=== PATIENT | male | born 1965 | race Caucasian/White ===

== ENCOUNTER 2018-08-11 22:02 | Inpatient (IN) | payer OTHER ==
[2018-08-11 22:53] LABS: PTT 72.1 SEC (22.9-36.1)
[2018-08-11 22:55] LABS: Hemoglobin 12.7 g/dL (14.0-18.0); Mean Corpuscular HGB CONC 30.3 g/dL (32.0-36.0); Mean Corpuscular Hemoglobin 32.6 pg (27.0-31.0); Mean Platelet Volume 7.8 fL (7.4-10.4); Platelet Count 150 thou/uL (130-400); RBC Distribution Width 13.5 % (11.5-14.5); White Blood Cell (WBC) Count 5.4 thou/uL (4.8-10.8)
[2018-08-11 23:00] LABS: ALT (SGPT) 18 U/L (8-55); AST (SGOT) 31 U/L (5-34); Albumin 3.2 g/dL (3.5-5.0); Alkaline Phosphatase 95 U/L (40-150); Anion Gap 11 mmol/L (10-20); BUN (Urea Nitrogen) 12 mg/dL (8.4-25.7); Bilirubin, Total 0.6 mg/dL (0.2-1.2); Calc. Creatinine Clearance 0 mL/min (70-130); Carbon Dioxide 29 mmol/L (22-29); Chloride 104 mmol/L (98-107); Estimated GFR-MDRD 61; Globulin 3.9 g/dL (2.4-3.5); Glucose 73 mg/dL (70-105); Potassium 4.4 mmol/L (3.5-5.1); Protein, Total 7.1 g/dL (6.0-8.3); Sodium 140 mmol/L (136-145)
[2018-08-11 23:03] LABS: Prothrombin Time 96.3 SEC (12.0-14.7)
[2018-08-11 23:05] LABS: #Eosinphils 0.3 thou/uL (0.0-0.7); #Lymphocytes 2.1 thou/uL (1.20-3.40); #Monocytes 0.8 thou/uL (0.11-0.59); #Neutrophils 2.1 thou/uL (1.40-6.50); %Basophils 0.4 % (0.0-1.0); %Eosinophils 6.2 % (0.0-10.0); %Monocytes 14.8 % (0.0-10.0); %Neutrophils 39.6 % (42.0-75.0); MDiff Complete? YES; Macrocytosis SLIGHT = 6-15 cells (100X) (0-5/hpf); PLT Morphology Comment Appears Adequate
[2018-08-11 23:07] LABS: INR-International Normal Ratio 12.9
[2018-08-12] MEDS ORDERED: Phytonadione 10 MG in Sodium Chloride 0.9% 50 ML IVPB SCH (00:30)
--- NOTE | 2018-08-12 01:05 | PDOC.FPRHP ---
- History of Present Illness Chief Complaint: abdominal pain/rectal bleeding History of Present Illness: 53yo M with hx of HIV, HepC and DVT (on coumadin) presents to ED for evaluation of abdominal pain and rectal bleeding. Pt reports epigastric pain started 2 days ago and that he did not have a BM for 2 days. On 08/11 when he did have a BM he noticed blood in the toilet and black tarry stool on wiping. pt was sent to ED and found to have unconcerning Hbg but an INR of 13. Related symptoms of dizyness and nausea, no vomiting. no transforming factors Pt reports that 1 month ago he was discovered to have a DVT after "passing out" he does not recal if he had been diagnosed with PE but that he was started on warfarin after episode. ED Course: vitamin K and 1u FFP given - Allergies/Adverse Reactions Allergies Allergy/AdvReac Type Severity Reaction Status Date / Time Penicillins Allergy Unverified 08/12/18 00:24 - Home Medications Medication Instructions Recorded Confirmed Type Abacavir Sulfate [Abacavir] 600 mg PO DAILY 08/12/18 08/12/18 History Acetaminophen [Non-Aspirin] 650 mg PO BID 08/12/18 08/12/18 History DULoxetine [Cymbalta] 30 mg PO DAILY 08/12/18 08/12/18 History Fosamprenavir Calcium 1,400 mg PO DAILY 08/12/18 08/12/18 History Furosemide 20 mg PO DAILY 08/12/18 08/12/18 History Lactulose 10 GM/15ML Oral Riay 20 gm PO QID 08/12/18 08/12/18 History [Lactulose] Omeprazole 20 mg PO DAILY 08/12/18 08/12/18 History PHENYLeph/Pramoxin/Glycr/W.Pet 51 gm RC QPM 08/12/18 08/12/18 History [Hemorrhoidal Cream] Propranolol [Inderal] 10 mg PO BID 08/12/18 08/12/18 History Ranitidine HCl 150 mg PO DAILY 08/12/18 08/12/18 History Rifaximin [Xifaxan] 600 mg PO BID 08/12/18 08/12/18 History Ritonavir [Norvir] 100 mg PO QPM 08/12/18 08/12/18 History Selenium Sulfide [Selenium Sulfide 1 applic TP ASDIR 08/12/18 08/12/18 History 2.25% Shampoo] lamiVUDine 300 mg PO DAILY 08/12/18 08/12/18 History - History PMHx: DVT, HepC, HIV, encephalopathy, cirrhosis PSHx: R knee FHx: unknown Social: denies tobacco, former drinker and drug user (quit 30 years): heavy EtOH use, "all the drugs" many IV, specifically endorsed meth, cocaine, heroine - Review of Systems General: denies: fever/chills, fatigue Eyes: denies: vision changes ENT: denies: nasal congestion Respiratory: denies: cough, congestion, shortness of breath Cardiovascular: denies: chest pain, palpitation Gastrointestinal: reports: nausea, GI bleeding. denies: vomiting, diarrhea Skin: denies: rashes Neurological: denies: syncope, seizure - Vital signs BP: [128/76] HR: [68] RR: [18] Tmax: [98.3] Pox: [98]% on [ra] Wt: [76] - Physical Exam Constitutional: NAD, awake, alert and oriented HEENT: normocephalic and atraumatic, EOMI, grossly normal vision, normal nasal mucosa, MMM Neck: trachea midline Chest: no-tender to palpation Heart: RRR, normal S1/S2 Lungs: CTAB, no respiratory distress Abdomen: soft, bowel sounds present -Abdomen: moderate tenderness to palpation of epigastric and bilateral upper quadrants, guarding, no rebound tenderness, liver edge not palpated Skin: no rash/lesions, good turgor Heme/Lymphatic: no unusual bruising or bleeding, no purpura Psychiatric: normal mood and affect FMR H&P: Results - Labs Result Diagrams: 08/11/18 22:29 08/11/18 22:29 Lab results: WBC 5.4 thou/uL (4.8-10.8) 08/11/18 22:29 Hgb 12.7 g/dL (14.0-18.0) L 08/11/18 22:29 Hct 42.0 % (42.0-52.0) 08/11/18 22:29 MCV 108.0 fL (78.0-98.0) H 08/11/18 22:29 Plt Count 150 thou/uL (130-400) 08/11/18 22:29 Neutrophils % 39.6 % (42.0-75.0) L 08/11/18 22:29 Sodium 140 mmol/L (136-145) 08/11/18 22:29 Potassium 4.4 mmol/L (3.5-5.1) 08/11/18 22:29 Chloride 104 mmol/L (98-107) 08/11/18 22:29 Carbon Dioxide 29 mmol/L (22-29) 08/11/18 22:29 BUN 12 mg/dL (8.4-25.7) 08/11/18 22:29 Creatinine 1.23 mg/dL (0.6-1.3) 08/11/18 22: Glucose 73 mg/dL (70-105) 08/11/18: Calcium 10.0 mg/dL (7.8-10.44) 08/11/18 22:29 Total Bilirubin 0.6 mg/dL (0.2-1.2) 08/11/18 22:29 AST 31 U/L (5-34) 08/11/18 22:29 ALT 18 U/L (8-55) 08/11/18 22:29 Alkaline Phosphatase 95 U/L (40-150) 08/11/18 22:29 Serum Total Protein 7.1 g/dL (6.0-8.3) 08/11/18 22:29 Albumin 3.2 g/dL (3.5-5.0) L 08/11/18 22:29 FMR H&P: A/P - Problem List (1) Elevated INR Current Visit: Yes Status: Acute Code(s): R79.1 - ABNORMAL COAGULATION PROFILE (2) GIB (gastrointestinal bleeding) Current Visit: Yes Status: Acute Code(s): K92.2 - GASTROINTESTINAL HEMORRHAGE, UNSPECIFIED (3) HIV disease Current Visit: Yes Status: Acute Code(s): B20 - HUMAN IMMUNODEFICIENCY VIRUS [HIV] DISEASE (4) Hepatitis C Current Visit: Yes Status: Acute Code(s): B19.20 - UNSPECIFIED VIRAL HEPATITIS C WITHOUT HEPATIC COMA (5) Cirrhosis Current Visit: Yes Status: Acute Code(s): K74.60 - UNSPECIFIED CIRRHOSIS OF LIVER (6) SBP (spontaneous bacterial peritonitis) Current Visit: Yes Status: Acute Code(s): K65.2 - SPONTANEOUS BACTERIAL PERITONITIS - Plan Supratherapeutic INR A- INR 13, s/p Vitamin K and FFP. Other than HPI showing no signs/symptoms of bleeding P- hold Warfarin - will repeat INR in AM - CBC in AM Acute upper GI bleed A- reporting melena and red blood in toilet. likely secondary to supratherapeutic INR P- Warfarin held. - on home protonix - consider GI consult when INR is therapeutic for possble endoscopy. - daily CBC Abdominal Pain A- Pt quite tender to palpation on exam, new onset abd pain, concern for SBP but paracentesis contraindicated due to high INR P- tx preemptively for SBP with Rocephin, and will hold propranolol. Cirrhosis - resume home medications. - avoid hepatotoxic medications. - will get ammonia level HIV - home meds FMR H&P: Upper Level - Pertinent history Herbert Mensah is a 53 year old male with a history of HIV, ESLD secondary to alcohol abuse and hepatitis C who presents to the ED with one day history of abdominal pain and one episode of melena and bright red blood per rectum. Pt was started on Warfarin one month ago for treatment of DVT. In the ER he was found to have an INR of 12.9. He was given one unit of FFP and IV Vitamin K. Pt reportedly had a negative EGD last year. - Pertinent findings Vitals: Tmax: 97.8 RR: 20 P: 65 BP: 159/99 O2: 100% on RA weight: 76 kg. Physical Exam: General: alert and oriented x 3 in no apparent distress Heart: Regular rate and rhythm, no murmurs, rubs, or gallops. Lungs: Clear to auscultation bilaterally. Abdomen: no significant distention. moderate tenderness to palpation diffusely. Guarding present; no rebound tenderness. INR: 12.9 PT: 96.3 PTT: 72.1 - Plan Date/Time: 08/12/18 0104 Jory Tanner, have evaluated this patient and agree with findings/plan as outlined by auditor internal resident. Pertinent changes/additions are listed here. Supratherapeutic INR -s/p Vitamin K and FFP. - will hold Warfarin - No indication for Kcentra at this time due to absence of life-threatening bleeding. - will repeat INR in AM to determine if repeat administrations of Vitamin K are needed. - will monitor CBC. Acute upper GI bleed - likely secondary to supratherapeutic INR, however variceal bleeding cannot be excluded. - Warfarin held. - consider GI consult when INR is therapeutic for possble endoscopy. - will monitor CBCs, - GI prophylaxis with PPI Abdominal Pain - concern for SBP due to new-onset, diffuse abdominal tenderness. - will treat preemptively for SBP with Rocephin, and will hold propranolol. Cirrhosis - resume home medications. - avoid hepatotoxic medications. - will get ammonia level HIV - resume home medications.
[2018-08-12] MEDS ORDERED: Pantoprazole 40 MG VIAL ONE (01:06)
[2018-08-12] MEDS ORDERED: Mag-Al 1200 mg/1200 mg/30 ML UDCUP ONE (01:06)
[2018-08-12] MEDS ORDERED: Lidocaine Viscous Sol 2% 15 ml UD Cup ONE (01:06)
[2018-08-12] MEDS ORDERED: SELENIUM SULFIDE TOP SCH (03:00)
[2018-08-12] MEDS ORDERED: Ondansetron ODT 4 MG TAB PO PRN (03:21)
[2018-08-12 03:46] VITALS: BMI 25.8
[2018-08-12 05:22] LABS: INR-International Normal Ratio 2.8; PTT 44.3 SEC (22.9-36.1); Prothrombin Time 29.3 SEC (12.0-14.7)
[2018-08-12 05:45] LABS: Anion Gap 11 mmol/L (10-20); BUN (Urea Nitrogen) 12 mg/dL (8.4-25.7); Calc. Creatinine Clearance 94 mL/min (70-130); Calcium 9.4 mg/dL (7.8-10.44); Carbon Dioxide 27 mmol/L (22-29); Chloride 106 mmol/L (98-107); Estimated GFR-MDRD 78; Glucose 88 mg/dL (70-105); Potassium 3.8 mmol/L (3.5-5.1); Sodium 140 mmol/L (136-145)
[2018-08-12 05:53] LABS: Band 2 % (5-11); Eosinophils 5 % (0-10); Hemoglobin 11.6 g/dL (14.0-18.0); Lymphocytes 39 % (21-51); MDiff Complete? YES; Macrocytosis SLIGHT = 6-15 cells (100X) (0-5/hpf); Mean Corpuscular HGB CONC 31.7 g/dL (32.0-36.0); Mean Corpuscular Hemoglobin 33.8 pg (27.0-31.0); Mean Platelet Volume 7.7 fL (7.4-10.4); Monocytes 18 % (0-10); Neutrophil 35 % (42-75); PLT Morphology Comment Appears Decreased; Platelet Count 119 thou/uL (130-400); RBC Distribution Width 13.5 % (11.5-14.5); Reactive Lymphocytes 1 % (0-10); Red Blood Cell (RBC) Count 3.44 mill/uL (4.70-6.10); White Blood Cell (WBC) Count 4.6 thou/uL (4.8-10.8)
--- NOTE | 2018-08-12 06:03 | PDOC.FM ---
- Subjective Subjective: NAEO. Patient denies any fever, chest pain, or SOB, N/V/D. Endorses some chills & LLE edema as well as marked improvement in abdominal pain. Rates is a 2/10 in severity. Also reported a tarry BM since getting to the floor. Had some blood on the tissue as well but states bleeding was much better than what he saw before coming to the hospital. - Objective MAR Reviewed: Yes Vital Signs & Weight: Weight Weight 79.379 kg Result Diagrams: 08/12/18 05:01 08/12/18 05:01 Phys Exam - Physical Examination Constitutional: NAD HEENT: moist MMs, sclera anicteric, oral pharynx no lesions Neck: supple, full ROM Respiratory: no wheezing, no rales, no rhonchi, clear to auscultation bilateral Cardiovascular: RRR, no significant murmur, no rub Gastrointestinal: soft, positive bowel sounds mild abdominal distention w/ severe TTP on epigastrium Musculoskeletal: edema present LLE edematous compared to the RLE. No pitting present. Neurological: non-focal, moves all 4 limbs dulled sensation to touch in B/L feet Psychiatric: normal affect, A&O x 3 Skin: no rash, normal turgor Dx/Plan (1) Elevated INR Code(s): R79.1 - ABNORMAL COAGULATION PROFILE Status: Acute (2) GIB (gastrointestinal bleeding) Code(s): K92.2 - GASTROINTESTINAL HEMORRHAGE, UNSPECIFIED Status: Acute (3) HIV disease Code(s): B20 - HUMAN IMMUNODEFICIENCY VIRUS [HIV] DISEASE Status: Acute (4) Hepatitis C Code(s): B19.20 - UNSPECIFIED VIRAL HEPATITIS C WITHOUT HEPATIC COMA Status: Acute (5) Cirrhosis Code(s): K74.60 - UNSPECIFIED CIRRHOSIS OF LIVER Status: Acute (6) SBP (spontaneous bacterial peritonitis) Code(s): K65.2 - SPONTANEOUS BACTERIAL PERITONITIS Status: Acute - Plan Plan: 53YOM with a PMG significant for HIV, HepC, and a h/o DVT chronic anticoagulation with coumadin who presented to ED for evaluation of abdominal pain and rectal bleeding & was found to have a supratherapeutic INR of 12.9. Supratherapeutic INR - INR of 12.9 on presentation. Down to 2.8 this AM s/p Vitamin K and 1 unit of FFP. - Will continue to hold Warfarin in anticipation of possible EGD w/ biopsy today. - Hgb down only slightly to 11.6 from 12.7 on presentation. - Will continue to monitor. Acute upper GI bleed - FOBT was + on admission. Most likely secondary to supratherapeutic INR. Patient endorses another tarry stool since arriving to the floor. - Will continue to hold Warfarin. - Will continue on home protonix for GI PPx. - GI to see this AM after being consulted in the ED yesterday. INR is measuring therapeutic this AM. Patient will likely need to undergo endoscopy. - Will continue to monitor Hgb w/ QD CBCs. Abdominal Pain - GI consulted in the ED. - Will make NPO until GI can evaluate as they may be able to scope today. - Will order a RUQ U/S & lipase. - Will consider paracentesis now that INR is therapeutic and patient is still TTP on exam. Will continue with IV Rocephin & continue to hold propanolo as BPs have been well-controlled for suspected SBP. Cirrhosis 2/2 hepC - Will resume home medications. - Will continue to avoid hepatotoxic medications. - Ammonia level WNLs at 64 this AM but patient is A&O. HIV - Aware. - Will resume home meds.
[2018-08-12] MEDS: cefTRIAXone\\ROCEPHIN 2 GM in Sodium Chloride 0.9% 100 ML IVPB SCH (06:10)
[2018-08-12] MEDS ORDERED: FOSAMPRENAVIR CALCIUM PO SCH (09:00)
[2018-08-12] MEDS ORDERED: Prevnar 13-Val Conj/PF 0.5 ML SYRINGE IM ONE (09:00)
[2018-08-12] MEDS: DULoxetine 30 MG CAP PO SCH (09:14)
[2018-08-12] MEDS: Rifaximin 550 MG TAB PO SCH ×2 (09:15→21:32)
[2018-08-12] MEDS: Furosemide 20 MG TAB PO SCH (09:15)
[2018-08-12] MEDS ORDERED: PROPOFOL 200 MG/20 ML VIAL ONE (09:47)
[2018-08-12] MEDS ORDERED: Lidocaine 1% PF 5 ML VIAL ONE (09:47)
--- NOTE | 2018-08-12 10:01 | HP ---
I have read the history and physical of Dr. Reggie Sanabria and have discussed the case with him. I a gree with his assessment and plan. Briefly, Mr. Mensah is a 53-year-old incarcerated white male patient with a history of HIV and hepatiti s C as well as cirrhosis. He presented with some rectal bleeding and melena at our ER. He was also on Coumadin for a DVT he developed approximately 1 month ago. He has been admitted for further evalu ation and treatment. PHYSICAL EXAMINATION: GENERAL: This morning, he is awake and alert. He is in no distress. In fact, he is quite cheerful. VITAL SIGNS: Stable with a blood pressure 130/74. His heart rate is 70 and regular, respirations 16 . He is afebrile. His pulse ox on room air is 98%. HEENT: No signs of erythema or exudate. NECK: Supple. CARDIAC: Heart rhythm is regular. S4 gallop. No murmur, no rub noted. LUNGS: Clear. No rales, rhonchi or wheezes. No consolidation or respiratory distress. ABDOMEN: Minimally tender in the epigastric area without guarding, rebound or rigidity. There may b e a small amount of ascitic fluid present, but there is no beatriz abdominal bloating or distention. EXTREMITIES: No evidence of DVT, no edema. NEUROLOGIC: No focal deficits. LABORATORY DATA: On admission, his hemoglobin was 12.7, it is now 11.6. His MCV is elevated at 108. Chemistries; his sodium is 140, potassium 3.8, chloride 106, bicarbonate 27, BUN 12, creatinine 1, glucose is 88. Coags; he came in with an INR 12.9, it is now 2.8 after treatment with FFP and vitami n K. ASSESSMENT: Upper gastrointestinal bleed in a patient with cirrhosis. PLAN: We will consult GI as he will likely need endoscopy to assess for esophageal varices with band ing. Given that he is having an upper GI bleed, we will continue him on antibiotics. We will contin ue to monitor his INR and make a decision about resuming warfarin after his GI workup.
--- NOTE | 2018-08-12 12:32 | ULT ---
RIGHT UPPER QUADRANT ULTRASOUND: HISTORY: Abdominal pain. TECHNIQUE: Real-time imaging of the right upper quadrant was performed. FINDINGS: This shows an echogenic focus within the gallbladder lumen, which appears to be mobile. It shows onl y faint shadowing, but is still felt to represent a small stone, given its appearance, less likely tu mefactive sludge. The common duct is 2 mm, somewhat difficult to visualize. The liver shows a somew hat coarse echotexture, but no focal discrete lesions. The right kidney is approximately 8.9 cm in length. There is an echogenic area within the renal pelv is, which appears to represent more of a staghorn type calculus. There are several cysts identified. One of the largest cysts is 1.8 cm. The pancreas is obscured. IMPRESSION: 1. Echogenic mobile focus within the gallbladder, which only shows questionable minimal shadowing, b ut is still felt to most likely represent a small stone. 2. Coarse echotexture to the liver, without any focal lesion. 3. Fairly prominent shadowing from the right renal pelvis. This would suggest there is a staghorn t ype calculus. A plain film correlation would be recommended. Right renal cysts are also identified. POS: [facility]
[2018-08-12] MEDS ORDERED: Midazolam HCl 2 mg/2 ml Vial ONE (12:35)
--- NOTE | 2018-08-12 12:46 | CON ---
DATE OF CONSULTATION: 08/12/2018 REASON FOR CONSULTATION: Black stool and rectal bleeding. HISTORY OF PRESENT ILLNESS: Mr. Mensah is a 53-year-old [facility] inmate with history of hepatitis C, HIV, a nd a history of deep vein thrombosis on Coumadin. He was admitted to the hospital with supratherapeu tic INR of 12. Clinically, he reports having some upper abdominal pain for the last 2-3 days associa nba with black stool. He also has noted some nausea, but without any vomiting. Currently, he denies having any abdominal pain, nausea, or vomiting. Overnight, he did receive 1 unit of FFP. His INR t his morning is down to 2. His blood count has remained stable. There is no history of hematemesis o r coffee ground emesis. He denies having had any previous history of gastrointestinal bleeding. PAST SURGICAL HISTORY: 1. Chronic hepatitis C. 2. Human immunodeficiency virus. 3. History of DVT. 4. Questionable cirrhosis. 5. Right knee surgery. SOCIAL HISTORY: The patient has no tobacco usage. He reports that he has no active alcohol usage. He did have history of illicit drug use in the past. FAMILY HISTORY: Negative for any known GI problem, liver disease, GI malignancy. REVIEW OF SYSTEMS: Ten point review of systems did not show any other pertinent positive or negative . PHYSICAL EXAMINATION: VITAL SIGNS: Temperature is 98.2, blood pressure 128/75, pulse of 69. GENERAL: He is alert, in no distress. HEENT: Shows anicteric sclerae. Oropharynx clear. NECK: Supple. CARDIOVASCULAR: Shows normal S1, S2, regular rate and rhythm. CHEST: Shows normal breath sounds. ABDOMEN: Soft, no distention, no tympany. He has active bowel sounds. EXTREMITIES: Shows no edema. LABORATORY DATA: WBC is 4.6, hemoglobin 11.6 (12.7 yesterday), platelet count of 119. INR is 2.8 (d own from 12.9 after vitamin K and 1 FFP). Electrolytes within normal range; creatinine 1.0, bilirubi n 0.6, AST 31, ALT of 18, alkaline phosphatase 95, lipase of 42. ASSESSMENT: 1. Limited upper gastrointestinal bleeding characterized as melenic stool. The patient did have a s upratherapeutic INR on warfarin which has been corrected. I suspect bleeding has been limited as he has not any significant drop in his blood count. 2. Questionable cirrhosis, no physical stigmata although his platelet count is slightly low. 3. History of human immunodeficiency virus and chronic hepatitis C. 4. History of deep venous thrombosis, on warfarin. RECOMMENDATIONS: 1. We will review ultrasound result. 2. Proceed with EGD prior to restarting anticoagulant. 3. Further recommendation to follow pending above findings.
[2018-08-12] MEDS ORDERED: Promethazine HCl 25 MG/ML VIAL IM PRN (12:57)
[2018-08-12] MEDS ORDERED: Ondansetron HCl/PF 4 MG/2 ML Vial IVP PRN (12:57)
[2018-08-12] MEDS ORDERED: Promethazine HCl 25 MG/ML VIAL SLOW IVP PRN (12:57)
[2018-08-12 15:13] LABS: HBSAg Index 0.33 S/CO (0-0.99); Hep B Core Total Ab Non-Reactive (NonReactive); Hep B Core Total Index 0.27 S/CO (0-0.79); Hep B Surf Ag Non-Reactive S/CO (NonReactive)
[2018-08-12 16:21] LABS: Hep B Surf AB Reactive (NonReactive)
--- NOTE | 2018-08-12 17:31 | OP ---
DATE OF PROCEDURE: 08/12/2018 PROCEDURE PERFORMED: Esophagogastroduodenoscopy. PHYSICIAN: Cristóbal Alcala M.D. PREMEDICATION: Given by Anesthesiology Department. PREPROCEDURE DIAGNOSES: 1. Possible upper gastrointestinal bleed. 2. Melanic stool with admission of supratherapeutic warfarin therapy with INR of 12. POSTPROCEDURE DIAGNOSES: 1. Mild nonerosive antritis. 2. Otherwise normal upper endoscopy. 3. No evidence of portal hypertension/gastropathy/varices. PROCEDURE IN DETAIL: A written consent was obtained prior to procedure. After adequate sedation, th e forward-viewing endoscope was advanced under stomach under direct vision to the third portion of du odenum. The duodenum appeared normal. The duodenal bulb appeared normal. Pulses patent. Mild antr al erythema was noted in the prepyloric area. There were no erosions or ulcerations seen. The body, fundus, and cardia appeared normal. Retroflexion did not show any abnormality. GE junction was loc ated at 40 cm. The lower, mid, and upper esophagus appeared normal. There was no sign of portal gas tropathy or varices. There was no bleeding seen. The patient tolerated the procedure well. ASSESSMENT: 1. Mild antritis, otherwise normal upper endoscopy. 2. No evidence of portal hypertension changes. RECOMMENDATIONS: 1. Resume diet. 2. Patient can resume warfarin from GI standpoint.
[2018-08-12] MEDS ORDERED: Sucralfate 1 GM TAB PO SCH (18:00)
[2018-08-12] MEDS ORDERED: [UNRECOGNIZED DRUG - OTHER] RC SCH (21:00)
[2018-08-12] MEDS: Propranolol 10 MG TAB PO SCH (21:31)
[2018-08-12] MEDS: Sucralfate 1 GM TAB PO SCH (21:32)
[2018-08-13] MEDS: cefTRIAXone\\ROCEPHIN 2 GM in Sodium Chloride 0.9% 100 ML IVPB SCH (05:02)
--- NOTE | 2018-08-13 06:06 | PDOC.FM ---
- Subjective Subjective: Patient placed on nasal canula overnight when sats dropped to 93%. However, patient denies any CP or SOB. Also denies any N/V/D or abdominal pain. Denies any continued melena or hematochezia as he had no BMs yesterday or overnight. Does take lactulose QD and did not get his dose yesterday while he was NPO. Does endorse h/o colonoscopy ~5 years ago that showed internal hemorrhoids. Endorses typical BPH symptoms such as incomplete emptying, nocturia, and difficulty maintaining a steady stream. Also endorses occasional hematuria. Says he has been told he has calcium all over his kidneys and that he has an enlarged prostate. Did not start any BPH meds due to antiretrovirals per patient. - Objective MAR Reviewed: Yes Vital Signs & Weight: Vital Signs (12 hours) Temp Pulse Resp BP Pulse Ox 08/13/18 04:10 98.0 F 64 18 117/71 97 08/13/18 00:16 98.0 F 67 16 110/65 93 L 08/12/18 20:00 96 08/12/18 19:31 98.4 F 78 18 97/60 96 Weight Admit Weight 79.379 kg Weight 79.379 kg Result Diagrams: 08/13/18 06:07 08/12/18 05:01 Phys Exam - Physical Examination Constitutional: NAD HEENT: moist MMs, sclera anicteric Neck: supple, full ROM Respiratory: no wheezing, no rales, no rhonchi, clear to auscultation bilateral Cardiovascular: RRR, no significant murmur, no rub Gastrointestinal: soft, non-tender, positive bowel sounds mild distention Musculoskeletal: no edema slight edema in LLE compared to right but nonpitting Neurological: non-focal, moves all 4 limbs Psychiatric: normal affect, A&O x 3 Skin: no rash, normal turgor Deviation from normal: No jaundice Dx/Plan (1) Elevated INR Code(s): R79.1 - ABNORMAL COAGULATION PROFILE Status: Acute (2) GIB (gastrointestinal bleeding) Code(s): K92.2 - GASTROINTESTINAL HEMORRHAGE, UNSPECIFIED Status: Acute (3) HIV disease Code(s): B20 - HUMAN IMMUNODEFICIENCY VIRUS [HIV] DISEASE Status: Acute (4) Hepatitis C Code(s): B19.20 - UNSPECIFIED VIRAL HEPATITIS C WITHOUT HEPATIC COMA Status: Acute (5) Cirrhosis Code(s): K74.60 - UNSPECIFIED CIRRHOSIS OF LIVER Status: Acute (6) SBP (spontaneous bacterial peritonitis) Code(s): K65.2 - SPONTANEOUS BACTERIAL PERITONITIS Status: Acute - Plan Plan: 53YOM with a PMG significant for HIV, HepC, and a h/o DVT chronic anticoagulation with coumadin who presented to ED for evaluation of abdominal pain and rectal bleeding & was found to have a supratherapeutic INR of 12.9. Supratherapeutic INR - INR down to 1.7 this AM. - Will start on lovenox & warfarin as a bridge to warfarin only therapy on outpatient basis. Will start on therapeutic lovenox BID and warfarin dose of 5- 10mg per pharmacy recs & instruct detention staff to remain on both until INR is stable at 2 or more for 2 days and to then titrate warfarin to maintain an INR between 2-3. - Hgb 11.3 this AM. Acute upper GI bleed - FOBT was + on admission. Most likely secondary to supratherapeutic INR. Nothing noted via EGD except mild antritis therefore likely just 2/2 high INR. - Will start on therapeutic lovenox as a bridge to warfarin today. - Will continue on home protonix & sucralfate for gastritis. Abdominal Pain - Resovled per patient. - GI consulted in the ED. Dr. Alcala performed EGD yesterday which was notable for mild antritis only. States warfarin could be resumed. - RUQ U/S + for possible gallstone and R-sided staghorn calculus. However, clinical picture not concerning for this. - Will continue on protonix & sucralfate as stated above Cirrhosis 2/2 hepC - Will resume home medications. - Will continue to avoid hepatotoxic medications. - Hep C viral load pending to evaluate need for treatment or not. - Hep B panel significant for immunity w/ Ab load of 25. - Hep A studies pending. HIV - Aware. - Will resume home meds. - Viral load pending. h/o DVT - Will start on lovenox as bridge to resuming warfarin therapy as described above.
[2018-08-13 06:21] LABS: #Eosinphils 0.3 thou/uL (0.0-0.7); #Lymphocytes 1.8 thou/uL (1.20-3.40); #Monocytes 0.4 thou/uL (0.11-0.59); #Neutrophils 1.2 thou/uL (1.40-6.50); %Basophils 1.2 % (0.0-1.0); %Eosinophils 7.3 % (0.0-10.0); %Lymphocytes 48.4 % (21.0-51.0); %Monocytes 11.6 % (0.0-10.0); %Neutrophils 31.4 % (42.0-75.0); Hemoglobin 11.3 g/dL (14.0-18.0); Mean Corpuscular HGB CONC 30.9 g/dL (32.0-36.0); Mean Corpuscular Hemoglobin 33.2 pg (27.0-31.0); Mean Platelet Volume 8.1 fL (7.4-10.4); Platelet Count 117 thou/uL (130-400); RBC Distribution Width 13.4 % (11.5-14.5); White Blood Cell (WBC) Count 3.8 thou/uL (4.8-10.8)
[2018-08-13 06:22] LABS: INR-International Normal Ratio 1.7; PTT 38.6 SEC (22.9-36.1); Prothrombin Time 20.2 SEC (12.0-14.7)
[2018-08-13 07:32] LABS: Hepatitis A Total ABS Positive (Negative)
[2018-08-13] MEDS: DULoxetine 30 MG CAP PO SCH (08:35)
[2018-08-13] MEDS: Rifaximin 550 MG TAB PO SCH (08:35)
[2018-08-13] MEDS: Furosemide 20 MG TAB PO SCH (08:35)
[2018-08-13] MEDS: Sucralfate 1 GM TAB PO SCH ×2 (08:35→12:24)
[2018-08-13] MEDS ORDERED: Enoxaparin Sodium 80 MG/0.8 ML SYRINGE SC SCH (09:00)
[2018-08-13] MEDS: Propranolol 10 MG TAB PO SCH (10:28)
--- NOTE | 2018-08-13 14:10 | PRG ---
DATE OF SERVICE: 08/13/2018 Mr. Mensah underwent endoscopy yesterday with findings of a mild antral gastritis. Otherwise, there wa s no evidence of varices or other sequelae of portal hypertension. He states he looks and feels much better this morning since we added sucralfate to his PPI regimen. We can likely discharge him later today for followup with the detention doctors. He had a normal colonoscopy approximately 5 years ago.
[2018-08-13 14:15] VITALS: BP 109/60; TEMP 98.5
[2018-08-13] MEDS ORDERED: Warfarin Sodium 5 MG TAB PO SCH (17:00)
[2018-08-14 11:54] LABS: HIV-1 Quantitative, RNA PCR <20 copies/mL (.)
[2018-08-14 13:22] LABS: Hep C PCR-Quant HCV Not Detected IU/mL (.)
--- NOTE | 2018-08-14 14:02 | DIS-2 ---
DATE OF ADMISSION: 08/12/2018 DATE OF DISCHARGE: 08/13/2018 RESIDENT: Lorena Galvan MD ADMITTING ATTENDING: Lg Martinez MD DISCHARGE ATTENDING: Lg Martinez MD CONSULTATIONS: Gastroenterology, Dr. Cristóbal Alcala. PROCEDURES: 1. Abdominal ultrasound significant for an echogenic mobile focus in the gallbladder, most likely representing a small stone. A coarse echotexture to the liver without any focal lesions and a fairly prominent shadowing in the right renal pelvis suggestive of a staghorn type calculus with right renal cysts also identified. 2. Esophagogastroduodenoscopy significant for mild nonerosive antritis and no evidence of portal hypertension/gastropathy varices. PRIMARY DIAGNOSES: 1. Elevated INR secondary to chronic anticoagulation with warfarin. 2. Gastrointestinal bleeding secondary to elevated INR from chronic anticoagulation with warfarin. 3. Gastroenteritis. SECONDARY DIAGNOSES: 1. Human immunodeficiency virus. 2. Chronic Hepatitis C. 3. Cirrhosis. 4. History of deep venous thrombosis. DISCHARGE MEDICATIONS: 1. Acetaminophen 650 mg p.o. b.i.d. 2. Selenium sulfide 2.25% shampoo, 1 application topically as directed. 3. Hemorrhoidal cream 51 grams RC q.p.m. 4. Lovenox 80 mg/0.8 mL syringe 80 mg SQ daily until INR is greater than or equal to 2 for 2 consecutive days, then discontinue. 5. Protonix 40 mg p.o. daily. 6. Carafate 1 gram p.o. before meals and at bedtime for 2 weeks. 7. Coumadin 5 mg tab p.o. daily until INR reaches 2 for 2 consecutive days and Lovenox is discontinued, then titrate dose p.r.n. to maintain an INR between 2- 3. 8. Abacavir 600 mg p.o. daily. 9. Cymbalta 30 mg p.o. daily. 10. Fosamprenavir calcium 1400 mg p.o. daily. 11. Furosemide 20 mg p.o. daily. 12. Lactulose 20 grams p.o. q.i.d. 13. Lamivudine 300 mg p.o. daily. 14. Propranolol 10 mg p.o. b.i.d. 15. Rifaximin 600 mg p.o. b.i.d. 16. Ritonavir 100 mg p.o. q.p.m. DISCONTINUED MEDICATIONS: None. HOSPITAL COURSE: The patient is a 53-year-old male with past medical history significant for HIV, hepatitis C. and a history of deep venous thrombosis on chronic anticoagulation with warfarin who presented to the emergency department for evaluation of abdominal pain and rectal bleeding that began 2 days prior to presentation. The patient reported noticing a black tarry stool and blood in the toilet upon wiping on 08/11/2018 and was sent to the emergency department and found to have hemoglobin of 12.7. However, his INR was significantly supratherapeutic at 12.9. He was therefore given 10 mg of IV vitamin K as well as 1 unit of fresh frozen plasma. He was continued on PRN zofran for nausea, made n.p.o. and his warfarin was held. In addition, Gastroenterology, Dr. Cristóbal Alcala, was consulted in the ED in anticipation of possible endoscopy. Lastly, due to the patient's significant abdominal pain on exam, there was concern for possible SBP; however, a paracentesis was contraindicated due to his elevated INR on presentation. The patient was therefore started on prophylactic antibiotics with IV Rocephin and his home propranolol dose was held. He was then transferred to the floor for observation overnight. By the following morning the patient's INR had come down to 2.[address] Cari Ambrocio decided to proceed with an EGD to evaluate for any upper GI process that could explain the patient's melena on presentation. The EGD was performed later that day and was significant only for some mild antritis without any evidence of ulcers or esophageal varices. Dr. Alcala therefore concluded that the patient could resume his previous anticoagulation regimen and the patient was put on a regular diet and monitored overnight. By the morning of discharge , the patient's INR was down to 1.7.He was therefore restarted on warfarin 5 mg p.o. daily with Lovenox 80 mg b.i.d. to be continued as a bridge therapy until his INR was maintained between at or greater than 2 for 2 days. The patient denied any recurrent episodes of melena on his date of discharge and was therefore deemed to be hemodynamically stable and cleared to be discharged back to [facility] in stable condition. DISPOSITION: Stable. DISCHARGE INSTRUCTIONS: 1. [facility]: [facility]. 2. Diet: Regular diet, no restrictions. 3. Activity: As tolerated. No restrictions. 4. Followup: The patient was instructed to follow up with the [facility] the day following his discharge as he would need daily INR checks until he has discontinued the Lovenox and he has maintained an INR between 2-3 on p.o. warfarin only. [facility]
== END 2018-08-13 15:58 | DRG 379 ==
LOC: ERS 22:02 → EEVIPCON 22:02 → T4-A 08-12 00:37
PROVIDERS: ADMIT Emergency Medicine; ATTEND Emergency Medicine
PROC: 0DJ08ZZ Inspection of Upper Intestinal Tract, Via Natural or Artificial Opening Endoscopic (ICD-10-PCS; principal; 2018-08-12)
PROC: 30233K1 Transfusion of Nonautologous Frozen Plasma into Peripheral Vein, Percutaneous Approach (ICD-10-PCS; 2018-08-12)
DX: K92.2 Gastrointestinal hemorrhage, unspecified (principal); Z21 Asymptomatic human immunodeficiency virus [HIV] infection status; B18.2 Chronic viral hepatitis C; K74.60 Unspecified cirrhosis of liver; Z86.718 Personal history of other venous thrombosis and embolism; Z79.01 Long term (current) use of anticoagulants; T45.515S Adverse effect of anticoagulants, sequela; K72.90 Hepatic failure, unspecified without coma; F10.10 Alcohol abuse, uncomplicated; K29.60 Other gastritis without bleeding
CPT/HCPCS: 36415; 36430; 76705; 80048; 80053; 82140; 82274; 83690; 85025; 85610; 85730; 86704; 86706; 86708; 86850; 86900; 86901; 87340; 87522; 87536; 96365; 96375; C9113; J0696; J1650; J2001; J2250; J2704; J3430; J7050; P9059

== ENCOUNTER 2018-08-15 05:49 | Emergency (ER) | payer OTHER ==
[2018-08-15 06:19] LABS: Mean Corpuscular HGB CONC 31.8 g/dL (32.0-36.0); Mean Corpuscular Hemoglobin 33.8 pg (27.0-31.0); Mean Platelet Volume 7.9 fL (7.4-10.4); Platelet Count 137 thou/uL (130-400); RBC Distribution Width 13.6 % (11.5-14.5); Red Blood Cell (RBC) Count 3.56 mill/uL (4.70-6.10); White Blood Cell (WBC) Count 4.6 thou/uL (4.8-10.8)
[2018-08-15 06:22] LABS: INR-International Normal Ratio 1.8; PTT 37.4 SEC (22.9-36.1); Prothrombin Time 21.2 SEC (12.0-14.7)
[2018-08-15 06:30] LABS: ALT (SGPT) 15 U/L (8-55); AST (SGOT) 27 U/L (5-34); Alkaline Phosphatase 84 U/L (40-150); Anion Gap 9 mmol/L (10-20); BUN (Urea Nitrogen) 14 mg/dL (8.4-25.7); Bilirubin, Total 0.6 mg/dL (0.2-1.2); Calc. Creatinine Clearance 0 mL/min (70-130); Calcium 9.7 mg/dL (7.8-10.44); Carbon Dioxide 31 mmol/L (22-29); Chloride 106 mmol/L (98-107); Estimated GFR-MDRD 62; Globulin 3.5 g/dL (2.4-3.5); Glucose 83 mg/dL (70-105); Potassium 4.6 mmol/L (3.5-5.1); Protein, Total 6.5 g/dL (6.0-8.3); Sodium 141 mmol/L (136-145)
[2018-08-15 06:37] LABS: Eosinophils 2 % (0-10); Hypochromia SLIGHT = 6-15 cells (100X) (0-5/hpf); Lymphocytes 62 % (21-51); MDiff Complete? YES; Monocytes 12 % (0-10); Neutrophil 24 % (42-75); PLT Morphology Comment Appears Adequate
[2018-08-15] MEDS ORDERED: Pantoprazole 40 MG VIAL ONE (08:01)
[2018-08-15 10:45] LABS: Hemoglobin 11.5 g/dL (14.0-18.0); Mean Corpuscular HGB CONC 30.5 g/dL (32.0-36.0); Mean Corpuscular Hemoglobin 32.5 pg (27.0-31.0); Mean Platelet Volume 7.6 fL (7.4-10.4); Platelet Count 131 thou/uL (130-400); RBC Distribution Width 13.4 % (11.5-14.5); Red Blood Cell (RBC) Count 3.54 mill/uL (4.70-6.10); White Blood Cell (WBC) Count 4.1 thou/uL (4.8-10.8)
[2018-08-15 11:17] LABS: Eosinophils 8 % (0-10); Hypochromia SLIGHT = 6-15 cells (100X) (0-5/hpf); Lymphocytes 36 % (21-51); MDiff Complete? YES; Macrocytosis SLIGHT = 6-15 cells (100X) (0-5/hpf); Monocytes 2 % (0-10); Neutrophil 22 % (42-75); PLT Morphology Comment Appears Decreased; Polychromasia SLIGHT = 2-3 cells (100X) (0-2/hpf); Reactive Lymphocytes 32 % (0-10)
== END 2018-08-15 15:50 | disposition short-term general hospital (02) ==
LOC: ERS 05:49
DX: K92.2 Gastrointestinal hemorrhage, unspecified (principal); I10 Essential (primary) hypertension; Z79.899 Other long term (current) drug therapy
CPT/HCPCS: 36415; 80053; 85025; 85610; 85730; 86850; 86900; 86901; 96361; 96374; C9113